=== PATIENT | female | born 1990 | race Caucasian/White ===

== ENCOUNTER 2024-12-29 16:18 | Emergency (ER) | payer BC, SELFPAY ==
[2024-12-29] VITALS (7 sets, daily range): BP systolic 96–131; BP diastolic 59–75; BMI 25.2
[2024-12-29 16:48] LABS: Urine Albumin Negative (Neg - Trace); Urine Bilirubin Negative (Negative); Urine Character Clear (Clear); Urine Color Yellow; Urine Glucose Negative (Negative); Urine Ketone Negative (Negative); Urine Leukocyte Negative (Negative); Urine Nitrite Negative (Negative); Urine Occult Blood Negative (Negative); Urine Urobilinogen Negative (Neg - 1+)
[2024-12-29 16:50] LABS: % Basophils 0.7 % (0-2); % Eosinophils 1.3 % (0-6); % Immature Granulocytes 0.2 % (0-0.5); % Lymphocytes 26.3 % (20.5-51.1); % Monocytes 6.9 % (1.7-9.3); % Neutrophils 64.6 % (42.2-75.2); Absolute Basophils 0.1 10^3/uL (0-0.2); Absolute Eosinophils 0.1 10^3/uL (0-0.7); Absolute Lymphocytes 2.2 10^3/uL (1.2-3.4); Absolute Monocytes 0.6 10^3/uL (0.1-0.6); Absolute Neutrophils 5.4 10^3/uL (1.4-6.5); Hematocrit 38.2 % (37.0-47.0); Mean Corpuscular Hgb 30.2 pg (27.0-31.0); Mean Corpuscular Volume 88.6 fL (81.0-99.0); Nucleated Red Blood Cells % 0 %; Platelet Count 234 10^3/uL (130-400); Red Blood Cell Count 4.31 10^6/uL (4.20-5.40); Red Cell Dist. Width 12.8 % (11.5-14.5); White Blood Cell Count 8.4 10^3/uL (4.8-10.8)
[2024-12-29 17:10] LABS: HCG, Serum Qualitative Screen Positive
[2024-12-29 17:12] LABS: ALT (SGPT) 17 U/L (0-35); AST (SGOT) 22 U/L (14-36); Albumin 4.6 g/dl (3.5-5.0); Alkaline Phosphatase 40 U/L (38-126); Blood Urea Nitrogen 10 mg/dl (7-17); Calcium 9.8 mg/dl (8.4-10.2); Carbon Dioxide 24 mmol/L (22-30); Chloride 106 mmol/L (98-107); Glucose 72 mg/dl (70-99); Lipase 83 U/L (23-300); Potassium 4.6 mmol/L (3.5-5.1); Sodium 138 mmol/L (135-145); Total Bilirubin 0.4 mg/dl (0.2-1.3); Total Protein 7.2 g/dl (6.3-8.2); eGFR > 60.00
--- NOTE | 2024-12-29 18:00 | ED.GENMED ---
History of Present Illness
<Myla Leonard PA-C - Last Filed: 12/30/24 14:19>
General
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
Source: patient and spouse ( at bedside)
Exam Limitations: none
Time Seen by Provider: 12/29/24 18:09
Nursing documentation reviewed up to this point in time: agreed with
History of Present Illness
History of Present Illness:
Patient is a 34-year-old female presenting to the emergency department for evaluation of pelvic pain. Patient comes from [facility] today for US secodnary significant pain with both bimanual and speculum exam. She has had one year of pain w/ intercourse
and now with new right pelvid discomfort worsening over past month. Pelvic pain has been constant and dull with intermittent sharp stabbing pains. Patient denies any associated nausea, vomiting, anorexia, fevers, lightheadedness, shortness of
breath. Patient denies any vaginal bleeding or abnormal discharge. 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 She denies any history of other STIs.
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
LMP was a little over 4 weeks ago per patient. She did take a test last night as she felt she may have missed her period and it was very faintly positive.
Past History
<Aj Novoa PA-C - Last Filed: >
Past History
ED Past Medical History: Asthma and Other (Ovarian cysts); Negative GERD, Hypercholesterolemia, IDDM or NIDDM
ED Past Surgical History: None
Social History
Tobacco: Former smoker
Alcohol: None
Drug: None
Personal:
Living: with family
Employment: Employed
Family History
Family History: Hypertension and Other
Review of Systems
<Myla Leonard PA-C - Last Filed: 12/30/24 14:19>
Review of Systems
Allergies reviewed?: Yes
All Other Systems: ROS reviewed and negative except as documented in HPI and ROS
Phy Exam
<Myla Leonard PA-C - Last Filed: 12/30/24 14:19>
Physical Exam
Physical Exam:
Vitals: Patient's vital signs are stable. Afebrile
General: Patient is well appearing, no acute distress
Skin: Warm and dry, no rashes or lesions
Head: Normocephalic, atraumatic
Eyes: Sclera nonicteric. EOMs intact. No nystagmus.
Throat: Protecting airway
Neck: Normal ROM, no cervical spine tenderness, no meningismus
Cardiac: Regular rate and rhythm, no murmurs.
Pulm: Normal respiratory effort, no wheezes, rales, rhonchi heard on exam.
Abdomen: Abdomen soft. Moderate tenderness in right pelvic region. No tenderness at McBurneys point. No rebound tenderness or guarding.
Pelvic: Deferred by patient and provider
Extremities: No evidence of cyanosis or edema. Palpable DP pulses bilaterally
Neuro: AAOx3. Grossly intact.
Psychiatric: Normal affect.
Course
<Myla Leoanrd PA-C - Last Filed: 12/30/24 14:19>
Orders/Labs/Results
Orders:
Orders
12/29/24 16:35
Test Result ONCE
12/29/24 16:41
Beta HCG Quantitative Urgent
Comment: ADD ON
Complete Blood Count/With Diff Urgent
Comprehensive Metabolic Panel Urgent
HCG, Serum Qualitative Screen Urgent
Lipase Urgent
Urinalysis Reflex To Culture Urgent
Date Specimen was Collected: 12/29/24
Time Specimen was Collected: 16:35
12/29/24 17:37
US Pelvis W Transvag Combined Urgent
Comment: Patient has +preg test and DOES NOT KNOW YET
Reason For Exam: RLQ pain
12/29/24 17:57
Add On- LAB Urgent
Tests Added?: hcg quant
12/29/24 18:43
Acetaminophen [Tylenol] 650 mg PO NOW STA
12/29/24 20:01
Type+Screen Urgent
12/29/24 22:10
Consult MOPHEAD SEWER [MOPHEAD SEWER CONSULT] Urgent
Consulting Provider: Irina Birmingham
Was physician already notified: Yes
Abnormal Lab Results
12/29/24
16:41
MPV 11.0 H fL
(7.4-10.4)
12/29/24 16:41
12/29/24 16:41
Vital Signs
Initial and Last Documented VS:
Initial Vital Signs
Temp Pulse Resp BP Pulse Ox
98.8 F 84 17 131/75 99
12/29/24 16:31 12/29/24 16:31 12/29/24 16:31 12/29/24 16:31 12/29/24 16:31
Last Documented Vital Signs
Temp Pulse Resp BP Pulse Ox
99.8 F 56 18 111/67 98
12/29/24 19:33 12/29/24 23:09 12/29/24 23:09 12/29/24 23:01 12/29/24 22:52
<Pablo Chang MD - Last Filed: 12/29/24 20:14>
Orders/Labs/Results
Orders:
Orders
12/29/24 16:35
Test Result ONCE
12/29/24 16:41
Beta HCG Quantitative Urgent
Comment: ADD ON
Complete Blood Count/With Diff Urgent
Comprehensive Metabolic Panel Urgent
HCG, Serum Qualitative Screen Urgent
Lipase Urgent
Urinalysis Reflex To Culture Urgent
Date Specimen was Collected: 12/29/24
Time Specimen was Collected: 16:35
12/29/24 17:37
US Pelvis W Transvag Combined Urgent
Comment: Patient has +preg test and DOES NOT KNOW YET
Reason For Exam: RLQ pain
12/29/24 17:57
Add On- LAB Urgent
Tests Added?: hcg quant
12/29/24 18:43
Acetaminophen [Tylenol] 650 mg PO NOW STA
12/29/24 20:01
Type+Screen Urgent
12/29/24 22:10
Consult MOPHEAD SEWER [MOPHEAD SEWER CONSULT] Urgent
Consulting Provider: Irina Birmingham
Was physician already notified: Yes
Abnormal Lab Results
12/29/24
16:41
MPV 11.0 H fL
(7.4-10.4)
12/29/24 16:41
12/29/24 16:41
Vital Signs
Initial and Last Documented VS:
Initial Vital Signs
Temp Pulse Resp BP Pulse Ox
98.8 F 84 17 131/75 99
12/29/24 16:31 12/29/24 16:31 12/29/24 16:31 12/29/24 16:31 12/29/24 16:31
Last Documented Vital Signs
Temp Pulse Resp BP Pulse Ox
99.8 F 56 18 111/67 98
12/29/24 19:33 12/29/24 23:09 12/29/24 23:09 12/29/24 23:01 12/29/24 22:52
<Aj Novoa PA-C - Last Filed: >
Orders/Labs/Results
Orders:
Orders
12/29/24 16:35
Test Result ONCE
12/29/24 16:41
Beta HCG Quantitative Urgent
Comment: ADD ON
Complete Blood Count/With Diff Urgent
Comprehensive Metabolic Panel Urgent
HCG, Serum Qualitative Screen Urgent
Lipase Urgent
Urinalysis Reflex To Culture Urgent
Date Specimen was Collected: 12/29/24
Time Specimen was Collected: 16:35
12/29/24 17:37
US Pelvis W Transvag Combined Urgent
Comment: Patient has +preg test and DOES NOT KNOW YET
Reason For Exam: RLQ pain
12/29/24 17:57
Add On- LAB Urgent
Tests Added?: hcg quant
12/29/24 18:43
Acetaminophen [Tylenol] 650 mg PO NOW STA
12/29/24 20:01
Type+Screen Urgent
12/29/24 22:10
Consult MOPHEAD SEWER [MOPHEAD SEWER CONSULT] Urgent
Consulting Provider: Irina Birmingham
Was physician already notified: Yes
Abnormal Lab Results
12/29/24
16:41
MPV 11.0 H fL
(7.4-10.4)
12/29/24 16:41
12/29/24 16:41
Vital Signs
Initial and Last Documented VS:
Initial Vital Signs
Temp Pulse Resp BP Pulse Ox
98.8 F 84 17 131/75 99
12/29/24 16:31 12/29/24 16:31 12/29/24 16:31 12/29/24 16:31 12/29/24 16:31
Last Documented Vital Signs
Temp Pulse Resp BP Pulse Ox
99.8 F 56 18 111/67 98
12/29/24 19:33 12/29/24 23:09 12/29/24 23:09 12/29/24 23:01 12/29/24 22:52
<Myla Leonard PA-C - Last Filed: 12/30/24 14:19>
MDM/Problems Addressed
Differential Diagnosis Includes:
Not limited to: Ectopic , ovarian cyst, ovarian torsion, PID, tubo-ovarian abscess, etc.
MDM/Problems Addressed:
34 y.o F presenting with one year of dyspareunia now with progressively worsening right pelvic pain over past week. No fevers, vaginal bleeding/abnormal discharge, or urinary symptoms. Vitals and physical exam as above. Basic labs and UA were sent
in triage. Patients HCG came back positive, otherwise no clinically significant abnormalities. Differential at this point includes ovarian cyst, ovarian torsion, PID, UTI. Given positive HCG - concern for ectopic . Patient remains
hemodynamically stable. Do not suspect appendicitis or other intra-abdominal infectious process given patient is afebrile with no leukocytosis. Will check HCG, quantitative. Pelvic US pending.
update: HCG quantitiative 90.75. Pelvic US shows 5x5 cystic structure on right ovary favored to be a hemorrhagic cyst. Possible intrauterine gestational savc identified although no fetus or heart beat visualized. With no definitive IUP documented on
US and low HCG - concern remains for ectopic . OBGYN consulted.
Chronic conditions affecting care:
History of ectopic pregnancies, ovarian cysts
Acute Exacerbation and/or Progression of Chronic Illness:
N/A
<Myla Leonard PA-C - Last Filed: 12/30/24 14:19>
*Radiology
Radiology exam reviewed: radiology read reviewed
*Pulse Oximetry
Patient hypoxic: no
*EKG
Interpreted by ED Provider?: NA
*Dowel Setting Machine Operator Interpretation
Rate: Dowel Setting Machine Operator- N/A
*Critical Care Note
Total Time (30-74mins, 75-104mins- exclusive of procedures): Not Applicable
<Myla Leonard PA-C - Last Filed: 12/30/24 14:19>
Patient Management
Discussion with other providers: Linux System Engineer (Case was discussed w/ OBGYN)
<Myla Leonard PA-C - Last Filed: 12/30/24 14:19>
Update Note
Update Note:
OBGYN, Dr. Birmingham evaluated patient at bedside. Her overall impression is right ovarian cyst and early IUP. Patient stable for discharge home from OBGYN perspecitive - they have arranged close f/u with patient in office as well as repeat HCG
values. Patient remains hemodynamically stable. Will dicharge home w/ close return precautions.
ED Attending Note
<Pablo Chang MD - Last Filed: 12/29/24 20:14>
ED Attending Note
Patient seen and examined by attending physician: Yes
ED Attending Note:
I have seen and evaluated the patient with a [id number] encounter. I have spoken to the advance practicer provider and involved in the medical history, the physical exam, medical decision making.
Evaluation and management service: agree unless noted differently below.
Results interpretation: agree unless noted differently below.
Focused HPI: 34-year-old female with history as noted presents to the ER for evaluation of pelvic pain. Patient reports that she has had dyspareunia for a few months; she also reports that she has a history of pain usually in the right pelvic
region from ovarian cyst. She says that for the past week she has had a sharp pain in the right pelvic region that is unremitting which is unusual for her�she says typically pain from cysts comes and goes relatively quickly. She says that she saw
BOAT OUTBOARD ENGINE MECHANIC today in the office but was having so much pain that they could not even perform speculum exam and she had significant adnexal tenderness with bimanual exam which apparently prompted referral to the ER. Patient denies any unusual vaginal
discharge. Denies any vaginal bleeding. Denies any urinary symptoms. She denies any other complaints.
Physical exam: Awake alert not in distress. Vital signs normal. Abdomen soft, tender in the right pelvic region. Voluntary guarding.
Medical Decision Makin-year-old female presents with right pelvic pain for the past week. Vitals and exam as above. Noted to be hCG positive here. CBC and CMP unremarkable. Add hCG quant. Sent for pelvic ultrasound which showed
questionable gestational sac but also cystic mass in the right adnexal region. Will discuss with BOAT OUTBOARD ENGINE MECHANIC for consultation.
<Aj Novoa PA-C - Last Filed: >
-
Portions of this chart may have been created with voice recognition software.� Occasional wrong word or��sound alike� substitutions may have occurred due to the inherent limitations of voice recognition software.
Discharge Plan
Departure
Patient Disposition: Home (Routine Discharge)
Date of Disposition: 12/29/24
Time of Disposition: 22:58
Patient with high blood pressure during this ER visit?: No
Condition: Good
Covid-19: Not Applicable
Discharge Problem:
Hemorrhagic cyst of right ovary, Early stage of
Instructions: Ovarian cyst - ED discharge instructions
Prescriptions:
No Action
No Current Medications
0
Referrals:
Irina Birmingham MD [Active] - Follow up in 2-3 days
UNKNOWN - PT DOES,NOT KNOW [Unknown Provider] -
Activity Restrictions/Additional Instructions:
Return to the emergency department with any severe abdominal pain, vaginal bleeding, dizziness/lightheadedness, episodes of fainting, shortness of breath, or any other concerns
-As discussed�your pelvic ultrasound did show what is suspected to be a right ovarian cyst while in the emergency department. Your test was positive.
-As discussed with MOPHEAD SEWER�it is important you have your lab work repeated on to ensure your hCG is rising appropriately.
-You can take Tylenol as needed to for any pain. It is important you stay well-hydrated.
-Continue to follow-up with MOPHEAD SEWER for further care and management of ovarian cyst
Monitor your symptoms closely and return to the emergency department with any acute worsening/new symptoms or any other concerns
Interventions
Interventions:
*Risk Screen - Suicide Last Done: 12/29/24 16:34
*General Assessment Last Done: 12/29/24 16:34
*Neglect/Abuse Screening Last Done: 12/29/24 16:34
*ED- Fall Risk Assessment Last Done: 12/29/24 18:31
*ED COVID-19 Vaccine History Last Done: 12/29/24 16:34
*Nursing Disposition Last Done: 12/29/24 23:10
ED-Female Genitourinary Assessment Last Done: 12/29/24 19:39
Discharge Date and Time
Discharge Date/Time: 12/29/24 23:11
Print Language: ARMENIAN
[2024-12-29] MEDS: TYLENOL 650 MG PO (18:47)
[2024-12-29 20:43] LABS: Beta HCG Quantitative 90.75 mIU/ml
== END 2024-12-29 23:11 | disposition home or self-care (01) ==
LOC: EMR 16:18
PROVIDERS: Emergency Medicine; CONSULT PHYSICIAN Obstetrics & Gynecology Gynecology; EMERGENCY PHYSICIAN Emergency Medicine; FAMILY PHYSICIAN Nurse Practitioner
DX: O20.9 Hemorrhage in early pregnancy, unspecified (principal); N83.291 Other ovarian cyst, right side; R10.2 Pelvic and perineal pain; R10.31 Right lower quadrant pain; J45.909 Unspecified asthma, uncomplicated; I73.00 Raynaud's syndrome without gangrene; G43.909 Migraine, unspecified, not intractable, without status migrainosus; Z64.0 Problems related to unwanted pregnancy; Z88.0 Allergy status to penicillin; Z87.891 Personal history of nicotine dependence; Z91.018 Allergy to other foods
CPT/HCPCS: 99284; 76830; 76856; 80053; 81003; 83690; 84702; 84703; 85025; 86850; 86900; 86901

== ENCOUNTER → 2024-12-31 10:16 | Outpatient (REF) | payer BC, SELFPAY ==
[2024-12-31 11:34] LABS: Beta HCG Quantitative 70.02 mIU/ml
== END ==
LOC: REG 10:16
PROVIDERS: ATTENDING PHYSICIAN Obstetrics & Gynecology Gynecology; FAMILY PHYSICIAN Internal Medicine
DX: O02.1 Missed abortion (principal)
CPT/HCPCS: 36415; 84702